=== PATIENT | female | born 1950 | race Caucasian/White ===

== ENCOUNTER 2017-11-17 10:07 | Day surgery (SDC) | payer OTHER, MEDICARE ==
[2017-11-13 09:38] VITALS: BMI 28.3
[2017-11-17] MEDS ORDERED: POVIDONE-IODINE 5% OPHTHALMIC PREP 30 ML SOLUTION ONE (13:57)
[2017-11-17] MEDS ORDERED: ERYTHROMYCIN 0.5% OPHTHALMIC OINTMENT 3.5 GM TUBE ONE (13:57)
[2017-11-17] MEDS ORDERED: TETRACAINE 0.5% OPHTH SOLN 2 ML BOTTLE ONE (13:57)
[2017-11-17] MEDS ORDERED: BUPIVACAINE HCL/PF 0.5% (5MG/ML) 10 ML VIAL ONE ×2 (13:57→13:58)
[2017-11-17] MEDS ORDERED: LIDOCAINE 1%/EPI 1:100000 (20 ML MULTI DOSE VIAL) ONE (13:57)
[2017-11-17] MEDS ORDERED: GELATIN, ABSORBABLE 100 EACH SPONGE TP ONE (14:17)
[2017-11-17] MEDS ORDERED: MIDAZOLAM HCL 2 MG/2 ML SINGLE DOSE VIAL ONE (14:23)
[2017-11-17] MEDS ORDERED: PROPOFOL 20 ML ONE ×3 (14:34)
[2017-11-17] MEDS ORDERED: ceFAZolin SODIUM 1 GM VIAL ONE (14:35)
[2017-11-17] MEDS ORDERED: DEXAMETHASONE SOD PHOSPHATE 4 MG/1 ML VIAL ONE (14:35)
[2017-11-17] MEDS ORDERED: ONDANSETRON 4 MG/2 ML VIAL ONE (14:35)
[2017-11-17] MEDS ORDERED: ePHEDrine SULFATE 50 MG/1 ML AMPULE ONE (15:00)
[2017-11-17] MEDS ORDERED: THROMBIN (BOVINE) 5,000 UNIT VIAL TP ONE (15:00)
[2017-11-17] MEDS ORDERED: PROMETHAZINE HCL 25 MG/1 ML VIAL IVPB PRN (16:12)
[2017-11-17] MEDS ORDERED: ACETAMINOPHEN 325 MG TABLET (FP) PO PRN (16:12)
[2017-11-17] MEDS ORDERED: oxyCODONE HCL 5 MG TABLET PO PRN ×2 (16:12)
[2017-11-17] MEDS ORDERED: ONDANSETRON 4 MG/2 ML VIAL IVPUSH PRN (16:12)
[2017-11-17 17:27] VITALS: TEMP 98.1
[2017-11-17 17:57] VITALS: BP 136/80; PULSE 86
--- NOTE | 2017-11-18 07:04 | OP ---
DATE OF OPERATION: 11/17/2017 PREOPERATIVE DIAGNOSIS: Nasolacrimal obstruction with a epiphora on the left in the setting of chronic lymphocytic leukemia. POSTOPERATIVE DIAGNOSIS: Nasolacrimal obstruction with a epiphora on the left in the setting of chronic lymphocytic leukemia. PROCEDURE: 1. Dacryocystorhinostomy, left. 2. Silicone intubation, left. 3. Lachrymal sac biopsy sent for chronic lymphocytic leukemia, left. 4. Partial ethmoidectomy, left. 5. Endoscopy, left. 6. Partial middle turbinectomy. SURGEON: Watson Jin MD ANESTHESIA: General. ESTIMATED BLOOD LOSS: 50 mL. COMPLICATONS: None. OPERATION REPORT: Patient was brought to the operating room, placed on the operating room table. Vital signs monitored by Anesthesia. Tetracaine was placed in both eyes. The patient was placed under LMA anesthesia, and time-out was performed. Tear trough incision was marked in the left tear trough. A 50/50 mixture of 2% Xylocaine with 1:100,000 epinephrine and 0.5% Marcaine was injected in the tear trough, lateral wall of the nose, dorsal nasal artery, nasal third of the upper and lower lid. Under direct visualization, 2% Xylocaine with 1:100,000 epinephrine was injected in the middle meatus, middle turbinate, external naris, and septum. There was a septal deviation, and nose was packed with Cottonoids moistened with Afrin. The patient was prepped and draped in the usual sterile fashion exposing both eyes. The right eye was manually closed during the case. An incision was made in the tear trough on the left. Gentle spreading and blunt dissection were used to obtain the anterior lacrimal crest, and the anterior limb of the medial canthal tendon was identified. Periosteum was incised over the anterior lacrimal crest. The periosteum was reflected laterally exposing the lacrimal fossa, which was penetrated through the lacrimal bone, and upbiting Kerrison rongeurs were used to create an osteotomy extending from the nasal lacrimal duct to the medial canthal tendon. The mucosa was injected with 2% Xylocaine with 1:100,000 epinephrine. Mucosa was widely opened creating an anterior nasal mucosal flap. The middle turbinate was partially encroaching on the ostia, and therefore the anterior portion of the middle turbinate was removed with Kerrisons , and all of this bone and stuff that was removed from the nose was sent for pathologic study to rule out CLL. Therefore, all puncta were dilated and intubated with probes, and a sac was seen all ready to be opened having just reflected it incised it. So, anterior and posterior lacrimal sac flaps were created. The posterior lacrimal sac flap seemed to be thickened, and one could not tell where the thickening was from. Posterior lacrimal sac was generously biopsied and sent for pathology to rule out CLL. Everything else was biopsied and sent for rule out CLL including nasal mucosa and bone and any mucosal excrescences that were seen within the lacrimal sac. The anterior lacrimal sac flap was secured with a double-arm 5-0 chromic. Antibiotic irrigation was used throughout the case, and Cottonoid soaked with thrombin was used for hemostasis packing throughout the case. The system was intubated with Herrera probes and which were retrieved from the left external naris, and the scope was introduced demonstrating the septal deviation to the left, but no art impingement on the ostium that had been created. After antibiotic irrigation, the anterior lacrimal sac flap was secured to the anterior nasal mucosal flap, which was also biopsied and was secured to the periosteum anterior to the osteotomy site to prevent posterior fall and posterior depression of the anastomosis. Muscle layer was closed with two 5-0 chromic sutures, and the skin was closed with running 6-0 plain suture with plastic technique. The endoscope was again reintroduced demonstrating good positioning of the silicone stents which were removed from the probes, tied with locking knots, and secured to the left external naris with a single 6-0 Prolene with minimal tension on the loop of the left medial canthus. The Afrin was then sprayed in the nose, erythromycin ointment was placed on the sutures. The patient was awakened from anesthesia and taken to the recovery room in stable condition. WATSON JIN M.D. [id number]
--- NOTE | 2017-11-26 14:08 | PATH ---
Surgical Pathology Report Patient Name: JILL PRICE [facility]. Rec. #: [id number] /Age/Gender: 1950 (Age: 67) / F Account: [id number] Location: [facility] AMBUL[facility]ORY Taken: 11/17/2017 Received: 11/17/2017 Reported: 11/26/2017 Physicians: Tony Negron Specimen(s) Received A: LEFT LACRIMAL SAC A (FRESH) B: LEFT LACRIMAL SAC B (FRESH) C: LEFT NASAL MUCOSA D: NASAL BONE Clinical History Blocked left tear duct, rule out CLL Final Diagnosis A. left lacrimal sac a, biopsy: Low-grade CD5+ B-cell lymphoma. (See comment) B. left lacrimal sac B, biopsy: Low-grade CD5+ B-cell lymphoma. (See comment) C. left nasal mucosa, biopsy: Low-grade CD5+ B-cell lymphoma. (See comment) D. nasal bone, excision: Low-grade CD5+ B-cell lymphoma. (See comment) Note: Flow cytometry and immunophenotyping performed on the concurrent specimen ([id number]) detected a clonal CD5+ B-cell population, fish studies performed on that sample ([id number]) did not detect translocation t(11;14), making the diagnosis of mantle cell lymphoma unlikely. Based on the overall findings, the differential diagnosis includes involvement by atypical small lymphocytic lymphoma (asll/cll) and CD5+ marginal zone lymphoma. Correlation with relevant clinical and laboratory data is essential. This case was sent to [facility], [place], [place] and the above diagnosis was rendered there by Dr. Alfaro. See also complete [facility] reports ([id number], [id number]). Electronically Signed Xiomara Jerez M.D. Gross Description A. Received fresh labeled "left lacrimal sac A," is a 0.4 x 0.3 x 0.1 centimeter piece of red-taylor tissue. A portion of the tissue is placed in RPMI and sent for flow cytometry. The remaining tissue is submitted in one cassette. B. Received fresh labeled "left lacrimal sac B," are 5 pieces of red-taylor tissue ranging from 0.1-0.2 cm in greatest dimension. The specimen is entirely submitted in one cassette. C. Received in formalin labeled "left nasal mucosa," is a 0.9 cm in greatest dimension brown soft tissue fragment. The specimen is submitted in toto in one cassette. D. Received in formalin labeled "nasal bone," is a 1.1 x 0.7 x 0.2 cm aggregate of taylor bone fragments. The specimen is entirely submitted in one cassette, following decalcification. 11/18/2017 [facility]/18/2017
== END 2017-11-17 17:58 | disposition home or self-care (01) ==
LOC: FASU 10:07
PROVIDERS: ATTEND Ophthalmology
PROC: 09BV0ZZ Excision of Left Ethmoid Sinus, Open Approach (ICD-10-PCS; 2017-11-17)
PROC: 09JK8ZZ Inspection of Nasal Mucosa and Soft Tissue, Via Natural or Artificial Opening Endoscopic (ICD-10-PCS; 2017-11-17)
PROC: 081Y0Z3 Bypass Left Lacrimal Duct to Nasal Cavity, Open Approach (ICD-10-PCS; principal; 2017-11-17 15:01)
DX: H04.552 Acquired stenosis of left nasolacrimal duct (principal); C91.10 Chronic lymphocytic leukemia of B-cell type not having achieved remission; H04.202 Unspecified epiphora, left side
CPT/HCPCS: 88305-TC; 88311-TC; 94760